=== PATIENT | female | born 1995 | race Caucasian/White ===

== ENCOUNTER 2018-05-18 08:48 | Inpatient (IN) | payer OTHER ==
[2018-05-18 09:16] VITALS: BMI 34.7
[2018-05-18] MEDS ORDERED: Lactated Ringer's 1,000 ML IV ONE (09:17)
[2018-05-18] MEDS ORDERED: Lactated Ringer's 1,000 ML IV SCH (09:30)
[2018-05-18 10:04] LABS: BASO % 0.5 % (0.0-2.0); EOS # 0.1 K/uL (0.0-0.7); LYMPH # 1.9 K/uL (1.0-4.3); LYMPH % 19.8 % (20.0-40.0); MEAN CELL VOLUME 77.9 fL (81.0-99.0); MEAN CORPUSCULAR HEMOGLOBIN 25.1 pg (27.0-31.0); MEAN CORPUSCULAR HGB CONC 32.2 g/dL (33.0-37.0); MEAN PLATELET VOLUME 8.4 fL (7.2-11.7); MONO # 0.7 K/uL (0.0-0.8); MONO % 7.1 % (0.0-10.0); NEUT # 6.8 K/uL (1.8-7.0); NEUT % 71.6 % (50.0-75.0); RBC 3.99 Mil/uL (3.80-5.20); RED CELL DISTRIBUTION WIDTH 16.2 % (11.5-14.5); WHITE BLOOD COUNT 9.5 K/uL (4.8-10.8)
[2018-05-18 10:13] LABS: SQUAMOUS EPITHIAL 9 /hpf (0-5); URINE BACTERIA RARE (<OCC); URINE BILIRUBIN NEGATIVE (NEGATIVE); URINE BLOOD NEGATIVE (NEGATIVE); URINE CLARITY Hazy (Clear); URINE COLOR Amber (YELLOW); URINE GLUCOSE (UA) NORMAL (Normal); URINE LEUKOCYTE ESTERASE 2+ Leu/uL (Negative); URINE PROTEIN 1+ mg/dL (NEGATIVE)
[2018-05-18 10:26] LABS: ALB/GLOB RATIO 1.1 (1.0-2.1); ALBUMIN 3.4 g/dL (3.5-5.0); ALT/SGPT 77 U/L (9-52); AST/SGOT 57 U/L (14-36); BLOOD UREA NITROGEN 7 mg/dL (7-17); CALCIUM 8.6 mg/dl (8.6-10.4); GFR NON-AFRICAN AMERICAN > 60
--- NOTE | 2018-05-18 13:57 | OBPN ---
Datetime: 05/18/2018 13:55 IP Progress Impression: Normal progression of labor IP Procedures: Artificial ROM; Sterile Vag Exam IP Progress Plan: Continue present management; Anticipate Vaginal Delivery Contraction Comments Provider: q1-3 FHR - Baseline A Provider: 150 IP Progress Note Comment: pt was examined a bed tad ve 6/100/-1 cont pitocn anticipate Vital Signs Provider: Reviewed; Within Normal Limits NICHD Accel Fetus A IP Provider: 15X15 FHR Category Provider Fetus A: Category I NICHD Variability Prov Fetus A: Moderate 6-25bpm Dilatation, Provider: 6 Effacement, Provider: 100 Station, Provider: -1 NICHD Decel Fetus A IP Provider: None Datetime: 05/18/2018 09:41 Membranes, Provider: Intact Gestation - Est Wks by US: 38.5 Weight - Estimated: 6.4 on 04/29 US Presentation-Admit: Vertex
[2018-05-18] MEDS ORDERED: Oxytocin 30 UNIT 30 UNITS/500 ML BAG IV SCH (14:00)
[2018-05-18] MEDS ORDERED: Fentanyl/Bupivacaine HCl 250 ML EPI ONE (14:08)
[2018-05-18] MEDS ORDERED: Oxytocin 30 UNIT 30 UNITS/500 ML BAG IV ONE (15:52)
[2018-05-18] MEDS ORDERED: DiphenhydrAMINE 50 mg/ml Inj IVP STA (15:55)
[2018-05-18] MEDS ORDERED: DiphenhydrAMINE 50 mg/ml Inj ONE (16:07)
--- NOTE | 2018-05-18 19:49 | OBPN ---
Datetime: 05/18/2018 19:30 IP Progress Impression: Normal progression of labor IP Procedures: Sterile Vag Exam Contraction Comments Provider: q1-4 FHR - Baseline A Provider: 140 IP Progress Note Comment: pt was rexamined atyb ed side ve fd/100+2 started pushing anticoate peads called NICHD Variability Prov Fetus A: Moderate 6-25bpm Dilatation, Provider: 10 Effacement, Provider: 100 Station, Provider: 2 NICHD Decel Fetus A IP Provider: Variable
[2018-05-18] MEDS ORDERED: Benzocaine/Menthol 20%-0.5% Topical Spray (60 ml) TOP PRN (19:50)
--- NOTE | 2018-05-18 19:51 | OBDS ---
DELIVERY PERSONNEL Delivery Doctor: Aquiles Gibson MD Compressor Mechanic: Gladys Hunt RN Anesthesiologist: DR WALKER Resident: DR SWEENEY MATERNAL INFORMATION Delivery Anesthesia: Epidural Medications in Delivery: PITOCIN Maternal Complications: None; Other Other Maternal Complications: IOL for LGA Provider Comments: dr henna dailey baby deliverd in [place]. end clean 9/9 cord gas no com LABOR SUMMARY EDC: 05/29/2018 00:00 No. Babies in Womb: 1 Attempted: No Labor Anesthesia: Epidural LABOR INFORMATION Reason for Induction: Other Reason for Induction Other: lga Onset of Labor: 05/18/2018 14:00 Complete Dilatation: 05/18/2018 19:23 Cervical Ripening Agents: Cytotec @ (Annotations: 25 mcg vaginally inserted by Dr Gibson) Oxytocin: Induction Group B Beta Strep: Negative Steroids Given: None MEMBRANES Membranes Rupture Method: Artificial Rupture of Membranes: 05/18/2018 13:45 Length of Rupture (hrs): 5.82 Amniotic Fluid Color: Clear Amniotic Fluid Amount: Moderate Amniotic Fluid Odor: None STAGES OF LABOR Stage 1 hrs: 5 Stage 1 min: 23 Stage 2 hrs: 0 Stage 2 min: 11 Stage 3 hrs: 0 Stage 3 min: 5 Total Time in Labor hrs: 5 Total Time in Labor min: 39 VAGINAL DELIVERY Episiotomy: None Laceration Extension: First Degree Laceration Type: Perineal; Periurethral Laceration Repair Note: repaired with 3 chromicc Sponge Count Correct: Yes Sharps Count Correct: Yes BABY A INFORMATION Infant Delivery Date/Time: 05/18/2018 19:34 Method of Delivery: Vaginal Born in Route : No : N/A Forceps: N/A Vacuum Extraction: N/A Shoulder Dystocia : No SHOULDER DYSTOCIA BABY A Delivery Date/Time: 05/18/2018 19:34 PRESENTATION/POSITION BABY A Presentation: Cephalic Cephalic Presentation: Vertex Vertex Position: Left Occipital Anterior Breech Presentation: N/A PLACENTA INFORMATION BABY A Placenta Delivery Time : 05/18/2018 19:39 Placenta Method of Delivery: Spontaneous Placenta Status: Delivered SCORES BABY A Heart Rate 1 min: >100 bpm Resp Effort 1 min: Good Cry Reflex Irritability 1 min: Cough or Sneeze or Pulls Away Muscle Tone 1 min: Active Motion Color 1 min: Body [place], Extremities Blue SCORE 1 MIN: 9 Heart Rate 5 min: >100 bpm Resp Effort 5 min: Good Cry Reflex Irritability 5 min: Cough or Sneeze or Pulls Away Muscle Tone 5 min: Active Motion Color 5 min: Body [place], Extremities Blue SCORE 5 MIN: 9 INFANT INFORMATION BABY A Gestational Age at Delivery: 38.3 Gestational Status: Term Infant Outcome : Liveborn Condition : Stable Infant Sex: Female IDENTIFICATION/MEDS BABY A ID Band Number: [id number] Sensor Number: [id number] WEIGHT/LENGTH BABY A Infant Birthweight (gms): 3165 Infant Weight (lb): 7 Weight (oz): 0 Length Inches: 20.00 Infant Length cms: 50.8 CORD INFORMATION BABY A Nuchal Cord : N/A Cord Blood Taken: Yes Infant Suction: Mouth; Nose ASSESSMENT BABY A Infant Complications: None Physical Findings at Delivery: Within Normal Limits Infant Respirations: Appears Normal Asset Specialist/ALS Called : No Care By: DR JAUREGUI Transferred To: Remains with Mother
--- NOTE | 2018-05-18 19:53 | OBADHP ---
Datetime: 05/18/2018 19:30 FHR - Baseline A Provider: 140 Contraction Comments Provider: q1-4 NICHD Variability Prov Fetus A: Moderate 6-25bpm NICHD Decel Fetus A IP Provider: Variable Dilatation, Provider: 10 Effacement, Provider: 100 Station, Provider: 2 Datetime: 05/18/2018 13:55 Vital Signs Provider: Reviewed; Within Normal Limits NICHD Accel Fetus A IP Provider: 15X15 FHR Category Provider Fetus A: Category I Datetime: 05/18/2018 09:41 IP Chief Complaint Other: LGA Admit Comment, IP Provider: Patient is a 23 year old female with IUP at 38.4 wks who presents t o hopsital for IOL. Patient reports relatively uncomplicated, maternal anemia treated with 30 days iron supplementation. Confirms continued movement. Currently patient reports heartbu rn. Patient reports she would like to attempt a drug free childbirth, but will consider pain medicat ion as needed. Denies contractions, vaginal bleeding, vaginal fluid leak, headache, SOB/wheezing, [place], vomiting, diarrhea. 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 Treated for Chlamydia 2012. PAP(04/04)-no abnormal results. Hx of (03/31 per previous record s) . LMP 08/21/18. DONYA 05/28 based on LMP. Maternal anemia treated w/ iron PMHx: Asthma(exercise induced) PSHx: Cholecystectomy 2015 Meds: vitamins, albuterol PRN, completed iron_30 days Allergies: NKDA FamHx: HTN, DM2, breast cancer, liver/lung cancer SocHx: Denies alcohol/tobacco/drug use. 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 Arthur Tai, PGY-1 Pelvic Type - PN: Adequate Extremities - PN: Normal Abdomen - PN: Normal Back - PN: Not Done Breast - PN: Not Done Lungs - PN: Normal Heart - PN: Normal Thyroid - PN: Normal Neurologic - PN: Normal HEENT - PN: Normal General - PN: Normal Weight - Estimated: 6.4 on 04/29 US Presentation-Admit: Vertex Membranes, Provider: Intact Comments, ACOG Physical Exam: Gen: NAD Cardiac: RRR, no MGR Pulm: CTA B/L Abd: Fundal height 44cm, non tender to palpation : /-3, membranes intact Ext: No calf tenderness/edema, no cyanosis Gestation - Est Wks by US: 38.5 IP Hx Assessment: The History has been Reviewed and is Current IP Chief Complaint: Scheduled induction of labor Genitourinary Exam: Not Done DTRs - PN: Not Done EGA AdmitDate IP: 38.3 IP Adm Impression: Term, intrauterine ; No Active Labor IP Admit Plan: Admit to unit; Initiate labor induction protocol
[2018-05-18] MEDS: Oxycodone/Acetaminophen 5/325 mg Tab PO PRN (22:10)
[2018-05-19] MEDS: Oxycodone/Acetaminophen 5/325 mg Tab PO PRN ×2 (04:51→09:39)
--- NOTE | 2018-05-19 07:27 | OBPPN ---
Datetime: 05/19/2018 07:24 PP Pain Prov: Within normal limits PP Nausea Prov: Denies PP Flatus Prov: Yes PP Abdomen/Uterus Prov: Normal PP Lochia Prov: Normal PP Extremities Prov: Normal PP Impression Prov: Normal progression PP Plan Prov: Continue present management PP Progress Note Prov: pt was seen at bed side, pain under control,no n.v, toretating eit, flatus+ ppd@1 cont pnv encoiurage ambulation cont pp care Vital Signs Provider PP: Reviewed; Within Normal Limits
[2018-05-19 08:24] LABS: BASO # 0.1 K/uL (0.0-0.2); BASO % 0.5 % (0.0-2.0); EOS # 0.1 K/uL (0.0-0.7); EOS % 1.2 % (0.0-4.0); HEMOGLOBIN 9.8 g/dL (11.0-16.0); LYMPH % 17.3 % (20.0-40.0); MEAN CELL VOLUME 78.8 fL (81.0-99.0); MEAN CORPUSCULAR HEMOGLOBIN 25.2 pg (27.0-31.0); MEAN PLATELET VOLUME 8.8 fL (7.2-11.7); MONO # 0.7 K/uL (0.0-0.8); MONO % 5.9 % (0.0-10.0); NEUT # 8.7 K/uL (1.8-7.0); NEUT % 75.1 % (50.0-75.0); RBC 3.88 Mil/uL (3.80-5.20); RED CELL DISTRIBUTION WIDTH 16.1 % (11.5-14.5); WHITE BLOOD COUNT 11.6 K/uL (4.8-10.8)
[2018-05-19 08:25] VITALS: RESP 18
[2018-05-19] MEDS: Vitamins A & D Oint UD Foilpak TOP SCH ×2 (19:41→19:42)
[2018-05-19] MEDS ORDERED: Tdap Vaccine 0.5 ml Vial (10-64 yrs) IM ONE (20:01)
[2018-05-20] MEDS: Oxycodone/Acetaminophen 5/325 mg Tab PO PRN (05:45)
[2018-05-20] MEDS: Vitamins A & D Oint UD Foilpak TOP SCH (10:02)
[2018-05-20] MEDS ORDERED: Influenza Vaccine 60 mcg/0.5 mL SYR (4YR UP) IM ONE (10:40)
[2018-05-20 10:43] VITALS: BP 112/69; O2SAT 98
[2018-05-20 18:53] VITALS: PULSE 99; TEMP 97.1
== END 2018-05-20 12:30 | disposition home or self-care (01) | DRG 373 ==
LOC: C.EROB 08:48 → C.4D 09:20 → C.4M 21:50
PROVIDERS: ADMIT Obstetrics & Gynecology; ATTEND Obstetrics & Gynecology
PROC: 10E0XZZ Delivery of Products of Conception, External Approach (ICD-10-PCS; principal; 2018-05-18)
PROC: 0HQ9XZZ Repair Perineum Skin, External Approach (ICD-10-PCS; 2018-05-18)
DX: O70.0 First degree perineal laceration during delivery (principal); O99.02 Anemia complicating childbirth; Z3A.38 38 weeks gestation of pregnancy; Z37.0 Single live birth